=== PATIENT | male | born 1935 | race African-American/Black ===

== ENCOUNTER 2019-05-19 21:51 | Emergency (ER) | payer MEDICARE ==
[~2019-05-19] VITALS: Ht 182.9 cm; Wt 84.0 kg
[2019-05-19 23:50] LABS: BASOPHILS % 0.2 % (0.0-2.0); EOSINOPHILS % 0.1 % (0.0-5.0); HEMATOCRIT. 42.1 % (42.0-52.0); MEAN CORPUSCULAR HEMOGLOBIN 28.8 pg (28.0-32.0); MEAN CORPUSCULAR VOLUME 86.3 fL (80.0-94.0); MEAN PLATELET VOLUME 10.1 fl (7.4-10.4); NEUTROPHILS % 80.7 % (40.0-76.0); PLATELET 120 x1000/uL (130-400); RED BLOOD CELL COUNT 4.88 mill/uL (4.7-6.1); RED CELL DISTRIBUTION WIDTH 15.2 % (11.6-14.6)
[2019-05-19 23:57] LABS: INR 1.1; PROTHROMBIN TIME 12.4 sec (9.6-11.0)
[2019-05-20 00:03] LABS: CHLORIDE 109 mEq/L (98-107)
[2019-05-20 00:06] LABS: ETHANOL BLOOD < 10 mg/dL
[2019-05-20 04:25] LABS: CLARITY URINE TURBID (CLEAR); COLOR URINE YELLOW (YELLOW); KETONES URINE NEGATIVE (NEGATIVE); LEUKOCYTE ESTERASE URINE 3+ (NEGATIVE); NITRITE URINE NEGATIVE (NEGATIVE); OCCULT BLOOD URINE 2+ (NEGATIVE); PH URINE 8.5 (4.5-8.0); PROTEIN URINE 2+ (NEGATIVE); SPECIFIC GRAVITY URINE 1.024 (1.005-1.030)
[2019-05-20 04:49] LABS: *AMPHETAMINES SCREEN URINE NEGATIVE (NEGATIVE)
[2019-05-20 04:50] LABS: *BARBITURATES SCREEN URINE NEGATIVE (NEGATIVE); *BENZODIAZEPINES SCREEN URINE NEGATIVE (NEGATIVE); *COCAINE SCREEN URINE NEGATIVE (NEGATIVE); METHADONE URINE SCREEN NEGATIVE (NEGATIVE); OPIATES URINE SCREEN NEGATIVE (NEGATIVE); PHENCYCLIDINE URINE SCREEN NEGATIVE (NEGATIVE)
[2019-05-20 04:51] LABS: CANNABINOID URINE SCREEN NEGATIVE (NEGATIVE)
[2019-05-20] MEDS ORDERED: ASPIRIN 81MG TABLET PO ONE (05:00)
[2019-05-20] MEDS ORDERED: CEFTRIAXONE 2 G PREMIX 50 ML IV ONE (05:30)
[2019-05-20] MEDS ORDERED: IOHEXOL-350 100 ML BOTTLE ONE (07:26)
[2019-05-20 13:58] VITALS: BP 133/49
== END 2019-05-20 16:38 | disposition short-term general hospital (02) ==
LOC: ER 21:51 → EDBEDREQTM 05-20 06:02 → EDBEDREQ 05-20 06:02 → CANBEDREQ 05-20 10:32 → ER 05-20 16:38
DX: G83.11 Monoplegia of lower limb affecting right dominant side (principal); R53.1 Weakness; R55 Syncope and collapse; M79.604 Pain in right leg; I69.351 Hemiplegia and hemiparesis following cerebral infarction affecting right dominant side; I11.9 Hypertensive heart disease without heart failure; N39.0 Urinary tract infection, site not specified; I25.10 Atherosclerotic heart disease of native coronary artery without angina pectoris; Z95.1 Presence of aortocoronary bypass graft; W01.0XXA Fall on same level from slipping, tripping and stumbling without subsequent striking against object, initial encounter; Y93.9 Activity, unspecified; Y92.9 Unspecified place or not applicable
CPT/HCPCS: 36415; 70450; 71045; 71275; 73502; 74174; 80053; 80305; 80320; 81003; 83880; 84484; 85025; 85610; 93005; 96365; 99285; J0696; Q9967; G0480

== ENCOUNTER 2020-03-21 11:20 | Inpatient (IN) | payer MEDICARE ==
[~2020-03-21] VITALS: Ht 177.8 cm; Wt 73.0 kg
[2020-03-21] MEDS ORDERED: SUCCINYLCHOLINE CHLORIDE 200MG/10ML IV ONE (11:30)
[2020-03-21] MEDS ORDERED: SODIUM CHLORIDE 0.9% 1000ML BAG (SEPSIS BOLUS) IV ONE (11:30)
[2020-03-21] MEDS ORDERED: ETOMIDATE 2MG/ML 10ML VIAL IV ONE (11:30)
[2020-03-21] MEDS ORDERED: PROPOFOL 10MG/ML 100ML 100 ML IV ONE (11:30)
[2020-03-21] MEDS ORDERED: PROPOFOL 10MG/ML 100ML 100 ML IV PRN (12:15)
[2020-03-21 12:42] LABS: HEMATOCRIT. 41.3 % (42.0-52.0); HEMOGLOBIN. 12.3 g/dL (14.0-18.0); MEAN CORPUSCULAR HEMOGLOBIN 25.3 pg (28.0-32.0); MEAN CORPUSCULAR VOLUME 84.6 fL (80.0-94.0); MEAN PLATELET VOLUME 8.8 fl (7.4-10.4); PLATELET 394 x1000/uL (130-400); RED BLOOD CELL COUNT 4.88 mill/uL (4.7-6.1); RED CELL DISTRIBUTION WIDTH 17.5 % (11.6-14.6)
[2020-03-21 12:43] LABS: CHLORIDE 105 mEq/L (98-107); INR 2.3; PROTHROMBIN TIME 22.9 sec (9.6-11.0)
[2020-03-21 12:53] LABS: BG BASE EXCESS -23.8 mmol/L (-2.0-2.0); BG CARBOXYHEMOGLOBIN 1.1 % (0.5-1.5); BG DEOXYHEMOGLOBIN 0.3 % (0.0-5.0); BG FRACTION INSPIRED OXYGEN 100; BG HCO3 ACT 6.7 mmol/L (22.0-26.0); BG METHEMOGLOBIN 0.2 % (0.0-1.5); BG OXYGEN SATURATION 99.7 % (92.0-98.5); BG OXYHEMOGLOBIN 98.4 % (94.0-97.0); BG PCO2 28.9 mmHg (35.0-45.0); BG PH 6.983 (7.350-7.450); BG SAMPLE SITE RIGHT RADIAL; BG TOTAL HEMOGLOBIN 13.3 g/dL (12.0-18.0); BG VENT MODE VENT - PRVC
[2020-03-21 13:01] LABS: CLARITY URINE TURBID (CLEAR); KETONES URINE TRACE (NEGATIVE); LEUKOCYTE ESTERASE URINE 3+ (NEGATIVE); NITRITE URINE NEGATIVE (NEGATIVE); OCCULT BLOOD URINE 2+ (NEGATIVE); PROTEIN URINE 3+ (NEGATIVE); SPECIFIC GRAVITY URINE 1.007 (1.005-1.030)
[2020-03-21 13:03] LABS: COLOR URINE YELLOW (YELLOW)
[2020-03-21] MEDS ORDERED: NOREPINEPHRINE 8MG/250ML PMX 250 ML IV STA (13:13)
[2020-03-21] MEDS ORDERED: PIPERACILLIN/TAZ 3.375G PREMIX 50 ML IV SCH (13:30)
[2020-03-21] MEDS ORDERED: NOREPINEPHRINE 8 MG in DEXTROSE 5% WATER 250 ML IV PRN (13:45)
[2020-03-21] MEDS ORDERED: VANCOMYCIN 1 G PREMIX 200 ML IV SCH (14:00)
[2020-03-21] MEDS ORDERED: DEXTROSE 50% WATER 50ML SYRINGE IV SCH (14:00)
[2020-03-21 14:31] LABS: PLATELET ESTIMATE NORMAL
[2020-03-21] MEDS ORDERED: DOPAMINE 400MG/250ML PREMIX 250 ML IV PRN ×2 (14:45→23:22)
[2020-03-21] MEDS ORDERED: MIDAZOLAM HCL 100 MG in DEXT 5% WATER 80 ML IV ONE (16:00)
[2020-03-22] MEDS: ASPIRIN 325MG TABLET NG SCH ×2 (01:33→09:15)
[2020-03-22] MEDS ORDERED: VANCOMYCIN 1 G PREMIX 200 ML IV SCH (02:45)
[2020-03-22] MEDS ORDERED: ENOXAPARIN 40MG/0.4ML SYR SUBCUT SCH (02:45)
[2020-03-22] MEDS ORDERED: ACETAMINOPHEN 325MG TABLET PO PRN (02:45)
[2020-03-22] MEDS ORDERED: IPRATROPIUM/ALBUTEROL 0.5-3(2.5)MG/3ML NEB HHN PRN (02:45)
[2020-03-22] MEDS ORDERED: PIPERACILLIN/TAZ 3.375G PREMIX 50 ML IV SCH (02:45)
[2020-03-22] MEDS ORDERED: SODIUM CHLORIDE 0.9% 1,000 ML IV ONE (03:00)
[2020-03-22] MEDS: PIPERACILLIN/TAZOBACTAM 2.25 G in DEXTROSE 5% WATER 50 ML IV SCH ×3 (03:12→22:13)
[2020-03-22 03:21] LABS: BG BASE EXCESS -8.5 mmol/L (-2.0-2.0); BG CARBOXYHEMOGLOBIN 1.4 % (0.5-1.5); BG DEOXYHEMOGLOBIN 2.9 % (0.0-5.0); BG FRACTION INSPIRED OXYGEN 40; BG HCO3 ACT 16.2 mmol/L (22.0-26.0); BG METHEMOGLOBIN 0.3 % (0.0-1.5); BG OXYHEMOGLOBIN 95.4 % (94.0-97.0); BG PCO2 31.3 mmHg (35.0-45.0); BG PH 7.332 (7.350-7.450); BG PO2 88.6 mmHg (75.0-100.0); BG SAMPLE SITE RIGHT RADIAL; BG VENT MODE PRVC
[2020-03-22] MEDS ORDERED: MIDAZOLAM HCL 100 MG in DEXT 5% WATER 80 ML IV SCH (06:00)
[2020-03-22 08:36] LABS: BG BASE EXCESS -7.3 mmol/L (-2.0-2.0); BG CARBOXYHEMOGLOBIN 0.8 % (0.5-1.5); BG DEOXYHEMOGLOBIN 2.2 % (0.0-5.0); BG HCO3 ACT 16.5 mmol/L (22.0-26.0); BG METHEMOGLOBIN 0.3 % (0.0-1.5); BG OXYGEN SATURATION 97.8 % (92.0-98.5); BG OXYHEMOGLOBIN 96.7 % (94.0-97.0); BG PCO2 28.4 mmHg (35.0-45.0); BG PH 7.381 (7.350-7.450); BG PO2 98.2 mmHg (75.0-100.0); BG SAMPLE SITE RIGHT RADIAL; BG TOTAL HEMOGLOBIN 12.6 g/dL (12.0-18.0); BG VENT MODE VENT- PRVC
[2020-03-22] MEDS ORDERED: ENOXAPARIN 30MG/0.3ML SYR SUBCUT SCH (09:00)
[2020-03-22] MEDS: PHENYLEPHRINE 50 MG in DEXT 5% WATER 245 ML IV PRN ×7 (11:02→22:40)
[2020-03-22] MEDS ORDERED: SUCCINYLCHOLINE CHLORIDE 200MG/10ML IV ONE (11:45)
[2020-03-22] MEDS ORDERED: IPRATROPIUM/ALBUTEROL 0.5-3(2.5)MG/3ML NEB HHN SCH (12:00)
[2020-03-22] MEDS: DEXT 5%/0.45% NACL 1000ML 1,000 ML IV SCH (14:43)
[2020-03-22] MEDS: IPRATROPIUM/ALBUTEROL 0.5-3(2.5)MG/3ML NEB HHN SCH ×2 (15:00→20:46)
[2020-03-22] MEDS ORDERED: VANCOMYCIN 500 MG PREMIX 100 ML IV SCH (15:00)
[2020-03-22 15:53] LABS: HEMATOCRIT. 34.7 % (42.0-52.0); HEMOGLOBIN. 11.6 g/dL (14.0-18.0); MEAN CORPUSCULAR HEMOGLOBIN 25.9 pg (28.0-32.0); MEAN CORPUSCULAR VOLUME 77.6 fL (80.0-94.0); MEAN PLATELET VOLUME 8.5 fl (7.4-10.4); PLATELET 215 x1000/uL (130-400); RED BLOOD CELL COUNT 4.47 mill/uL (4.7-6.1); RED CELL DISTRIBUTION WIDTH 16.5 % (11.6-14.6)
[2020-03-22 16:47] LABS: PLATELET ESTIMATE NORMAL
[2020-03-22] MEDS ORDERED: VASOPRESSIN 20 UNIT in SODIUM CHLORIDE 0.9% 99 ML IV PRN (17:00)
[2020-03-22 20:34] LABS: HEMATOCRIT 39.8 % (42.0-52.0); HEMOGLOBIN 13.4 g/dL (14.0-18.0); MEAN CORPUSCULAR HEMOGLOBIN 26.5 pg (28.0-32.0); MEAN CORPUSCULAR VOLUME 78.8 fL (80.0-94.0); PLATELET 202 x1000/uL (130-400); RED BLOOD CELL COUNT 5.04 mill/uL (4.7-6.1); RED CELL DISTRIBUTION WIDTH 17.1 % (11.6-14.6)
[2020-03-22 20:55] LABS: PHOSPHORUS 7.4 mg/dL (2.5-4.9)
[2020-03-22] MEDS: NOREPINEPHRINE 8 MG in DEXTROSE 5% WATER 250 ML IV PRN (22:21)
[2020-03-23] MEDS ORDERED: DEXAMETHASONE 4MG/ML 1ML VIAL IV SCH (01:00)
[2020-03-23] MEDS: DEXT 5%/0.45% NACL 1000ML 1,000 ML IV SCH (01:32)
[2020-03-23] MEDS: PIPERACILLIN/TAZOBACTAM 2.25 G in DEXTROSE 5% WATER 50 ML IV SCH (04:57)
[2020-03-23] MEDS: NOREPINEPHRINE 8 MG in DEXTROSE 5% WATER 250 ML IV PRN (05:09)
[2020-03-23 09:57] LABS: BG BASE EXCESS -12.2 mmol/L (-2.0-2.0); BG CARBOXYHEMOGLOBIN 0.8 % (0.5-1.5); BG DEOXYHEMOGLOBIN 0.3 % (0.0-5.0); BG FRACTION INSPIRED OXYGEN 100; BG HCO3 ACT 14.7 mmol/L (22.0-26.0); BG OXYGEN SATURATION 99.7 % (92.0-98.5); BG OXYHEMOGLOBIN 98.9 % (94.0-97.0); BG PCO2 36.8 mmHg (35.0-45.0); BG PH 7.219 (7.350-7.450); BG SAMPLE SITE RIGHT RADIAL; BG VENT MODE VENT - AC
[2020-03-23] MEDS ORDERED: SODIUM CHLORIDE 0.9% 1,000 ML IV ONE ×2 (10:00→10:15)
[2020-03-23] MEDS ORDERED: MORPHINE SULFATE 2 MG/ML CPJ (NOT FOR IM USE) IV PRN (10:45)
[2020-03-23] MEDS ORDERED: SODIUM BICARBONATE 150 MEQ in DEXTROSE 5% WATER 850 ML IV SCH (11:00)
[2020-03-24 01:07] VITALS: BP 46/19
== END 2020-03-24 03:50 | disposition expired | DRG 871 ==
LOC: ER 11:20 → EDBEDREQ 11:44 → MICUSO 15:57 → EDBEDREQ 16:25
PROVIDERS: ADMIT Ophthalmology; ATTEND Ophthalmology
PROC: 5A1945Z Respiratory Ventilation, 24-96 Consecutive Hours (ICD-10-PCS; principal; 2020-03-21)
PROC: 06HY33Z Insertion of Infusion Device into Lower Vein, Percutaneous Approach (ICD-10-PCS; 2020-03-21)
PROC: B54BZZA Ultrasonography of Right Lower Extremity Veins, Guidance (ICD-10-PCS; 2020-03-21)
PROC: 0BH18EZ Insertion of Endotracheal Airway into Trachea, Via Natural or Artificial Opening Endoscopic (ICD-10-PCS; 2020-03-21)
DX: A41.89 Other specified sepsis (principal); R65.21 Severe sepsis with septic shock; U07.1 COVID-19; N17.0 Acute kidney failure with tubular necrosis; J12.89 Other viral pneumonia; E43 Unspecified severe protein-calorie malnutrition; J96.01 Acute respiratory failure with hypoxia; I21.4 Non-ST elevation (NSTEMI) myocardial infarction; N39.0 Urinary tract infection, site not specified; E87.2 Acidosis; E78.5 Hyperlipidemia, unspecified; E16.2 Hypoglycemia, unspecified; I10 Essential (primary) hypertension; R74.01 Elevation of levels of liver transaminase levels; D64.9 Anemia, unspecified; Z51.5 Encounter for palliative care; Z66 Do not resuscitate; Z68.23 Body mass index [BMI] 23.0-23.9, adult; Z86.73 Personal history of transient ischemic attack (TIA), and cerebral infarction without residual deficits; Z95.1 Presence of aortocoronary bypass graft; Z79.899 Other long term (current) drug therapy
CPT/HCPCS: 36415; 36600; 71045; 76770; 80048; 80053; 81003; 82375; 82805; 82962; 83605; 83880; 84100; 84145; 84484; 85025; 85027; 87077; 87186; 93005; 94002; 94003; 94640; 99291; A4565; J0330; J1100; J1265; J1650; J2250; J2270; J2370; J2543; J2704; J3370; J3490; J7030; J7050; J7060; J7070; U0003